=== PATIENT | female | born 1980 | race African-American/Black ===

== ENCOUNTER 2025-05-13 13:30 | Emergency (ER) | payer SELFPAY ==
[~2025-05-13] VITALS: Ht 175.3 cm; Wt 95.0 kg
[2025-05-13] MEDS: HALOPERIDOL LACTATE 5MG/ML VIAL IM ONE (14:01)
[2025-05-13] MEDS: LORAZEPAM 2MG/ML UD SYRINGE IM NR (14:02)
[2025-05-13 14:37] LABS: BASOPHILS % 0.6 % (0.0-2.0); EOSINOPHILS % 1.4 % (0.0-5.0); HEMATOCRIT. 35.8 % (36.0-48.0); HEMOGLOBIN. 12.2 g/dL (12.0-16.0); LYMPHOCYTES % 17.4 % (20.0-50.0); MEAN PLATELET VOLUME 8.6 fl (7.4-10.4); MONOCYTES % 9.2 % (2.0-8.0); NEUTROPHILS % 71.4 % (40.0-76.0); PLATELET 245 x1000/uL (130-400); RED BLOOD CELL COUNT 3.86 mill/uL (4.2-5.4); RED CELL DISTRIBUTION WIDTH 13.7 % (11.6-14.6)
[2025-05-13 14:46] LABS: HCG SCREEN NEGATIVE
[2025-05-13 14:49] LABS: CREATININE 0.9 mg/dL (0.6-1.0); PROTEIN TOTAL 6.8 g/dL (6.0-8.3)
[2025-05-13 14:50] LABS: ETHANOL BLOOD < 10 mg/dL (<10); TROPONIN I HIGH SENSITIVITY 5 ng/L (3.0-34); UREA NITROGEN BLOOD 17 mg/dL (9-23)
[2025-05-13 14:51] LABS: ASPARTATE AMINOTRANSFERASE 46 IU/L (<34)
[2025-05-13 14:52] LABS: BILIRUBIN DIRECT 0.4 mg/dL (<=3.0); BILIRUBIN TOTAL 1.1 mg/dL (0.1-1.0)
[2025-05-13] MEDS ORDERED: OLANZAPINE 5MG TABLET ODT PO SCH (21:00)
[2025-05-13] MEDS: OLANZAPINE 5MG TABLET ODT PO SCH (23:39)
[2025-05-14 00:24] LABS: CLARITY URINE CLEAR (CLEAR); COLOR URINE YELLOW (YELLOW); GLUCOSE URINE NEGATIVE (NEGATIVE); KETONES URINE TRACE (NEGATIVE); LEUKOCYTE ESTERASE URINE NEGATIVE (NEGATIVE); NITRITE URINE NEGATIVE (NEGATIVE); OCCULT BLOOD URINE NEGATIVE (NEGATIVE); PH URINE 6.0 (4.5-8.0); PROTEIN URINE NEGATIVE (NEGATIVE); SPECIFIC GRAVITY URINE 1.022 (1.005-1.030); UROBILINOGEN URINE 1.0 E.U./dL (0.2-1.0)
[2025-05-14 00:44] LABS: *AMPHETAMINES SCREEN URINE PRESUMPTIVE POSITIVE (NEGATIVE); *BARBITURATES SCREEN URINE NEGATIVE (NEGATIVE); *BENZODIAZEPINES SCREEN URINE NEGATIVE (NEGATIVE); *COCAINE SCREEN URINE NEGATIVE (NEGATIVE); CANNABINOID URINE SCREEN PRESUMPTIVE POSITIVE (NEGATIVE); ECSTASY MDMA SCREEN URINE NEGATIVE (NEGATIVE); METHADONE URINE SCREEN NEGATIVE (NEGATIVE); OPIATES URINE SCREEN NEGATIVE (NEGATIVE); PHENCYCLIDINE URINE SCREEN NEGATIVE (NEGATIVE)
[2025-05-14 06:17] VITALS: O2SAT 98
[2025-05-14] MEDS: MIDAZOLAM HCL 2 MG/2 ML VIAL IM ONE (06:17)
[2025-05-14] MEDS: HALOPERIDOL LACTATE 5MG/ML VIAL IM ONE (06:17)
[2025-05-14] MEDS: IBUPROFEN 400MG TABLET PO SCH (09:27)
[2025-05-14 15:42] VITALS: BP 121/67; PULSE 96; RESP 18; TEMP 36.8; O2SAT 100
== END 2025-05-14 16:05 ==
LOC: ER 13:30 → CANBEDREQ 15:20 → ER 05-14 16:05
DX: F19.129 Other psychoactive substance abuse with intoxication, unspecified (principal); F31.9 Bipolar disorder, unspecified; F12.90 Cannabis use, unspecified, uncomplicated; F15.90 Other stimulant use, unspecified, uncomplicated; Z79.899 Other long term (current) drug therapy; Z20.822 Contact with and (suspected) exposure to COVID-19
CPT/HCPCS: 80076; 80305; 80048; 81003; 80307; 80329; 80320; 82140; 82550; 84703; 83735; 85025; 84484; 36415; 71045; 96372 ×2; 99291; 87426; J1630 ×2; J2060; Z7610; J2250; G0480